=== PATIENT | female | born 1985 | race Caucasian/White ===

== ENCOUNTER 2020-11-17 | Outpatient (REF) | payer OTHER, SELFPAY | END 2020-11-17 00:01 | disposition home or self-care (01) | LOC: HO.WFDLNP | PROVIDERS: Visit Provider Hospitalist | DX: Z13.89 Encounter for screening for other disorder (principal) | CPT/HCPCS: U0003 ==

== ENCOUNTER 2020-11-18 | Outpatient (REF) | payer OTHER, SELFPAY | END 2020-11-18 00:01 | disposition home or self-care (01) | LOC: HO.LNP | PROVIDERS: Visit Provider Hospitalist | DX: Z13.89 Encounter for screening for other disorder (principal) | CPT/HCPCS: U0003 ==